=== PATIENT | female | born 1965 | race Caucasian/White ===

== ENCOUNTER 2022-12-08 12:10 | Inpatient (IN) ==
--- NOTE | 2022-12-08 12:40 | Emergency Department Note ---
History of Present Illness General Chief complaint: Shortness of Breath/Dyspnea Stated complaint: SHORTNESS OF BREATH, VOMITING, DIARRHEA Time Seen by Provider: 12/08/22 12:21 Source: patient, family (Cousin who is at the bedside), RN notes reviewed and old records reviewed Mode of arrival: ambulatory Limitations: no limitations History of Present Illness Maximum Pain Intensity: 7 This patient a 57-year-old female who comes in after having increasing shortness of breath over last 2 weeks. It is primarily dyspnea on exertion she has she feels better when she lays down. She is normally very energetic but she says now she gets very short of breath if she just tries to do the dishes. She says she can get up and exert herself. She does have some chest pressure with this but denies that it actually is painful no palpitation or racing of her heart no fall or trauma no blood or melena stool no fever chills or cough no lecture extremity pain or swelling. She does have history of asthma which she is not sure this feels like or not. She also had nausea and vomiting diarrhea started on Friday and could not take any of her medications except for insulin her last blood sugar was in the 200s she tells me. She had a stress test but has been several years ago. No known cardiac disease. Home Medications Medication Instructions Recorded Confirmed Type albuterol sulfate 90 mcg/actuation 1 inh inhalation QID PRN SHORT OF 08/27/18 12/08/22 History breath activated powder inhaler BREATH calcium phosphate 125 mg-vit D3 1 tab PO DAILY 08/27/18 12/08/22 History 3.125 mcg (125 unit) chewable tablet cetirizine 10 mg capsule (Zyrtec) 10 mg PO BID 08/27/18 12/08/22 History chlorthalidone 25 mg tablet 25 mg PO QAM 08/27/18 12/08/22 History dulaglutide 1.5 mg/0.5 mL 1 dose subcut WK 08/27/18 12/08/22 History subcutaneous pen injector (Trulicity) fluticasone propionate 110 1 puff inhalation BID PRN SHORT OF 08/27/18 12/08/22 History mcg/actuation HFA aerosol inhaler BREATH (Flovent HFA) fluticasone propionate 50 1 spray intranasal DAILY PRN 08/27/18 12/08/22 History mcg/actuation nasal NEEDED spray,suspension (Flonase Allergy Relief) hydroxyzine HCl 25 mg tablet 25 mg PO HS 08/27/18 12/08/22 History metoprolol succinate 100 mg 100 mg PO QAM 08/27/18 12/08/22 History tablet,extended release 24 hr (Toprol XL) montelukast 10 mg tablet 10 mg PO QPM 08/27/18 12/08/22 History olopatadine 0.2 % eye drops 1 drp ophthalmic (eye) DAILY PRN 08/27/18 12/08/22 History (Pataday) ALLERGY RELIEF prednisone 20 mg tablet 40 mg PO DAILY PRN .HIVES 08/27/18 12/08/22 History famotidine 20 mg tablet 20 mg PO HS PRN ALLERGY 03/06/20 12/08/22 History eaybfkcqfpjej-gujrppmhlladc-ngmtkfpielife 1 cap PO DAILY PRN Migraine 03/06/20 12/08/22 History 65 mg-100 mg-325 mg capsule Headache sulfamethoxazole 800 1 tab PO Q12H #14 tabs 03/06/20 12/08/22 Rx mg-trimethoprim 160 mg tablet (Bactrim DS) meloxicam 15 mg tablet 15 mg PO DAILY #30 tabs 01/15/21 12/08/22 Rx insulin glargine 100 unit/mL (3 18 unit subcut QAM 12/08/22 12/08/22 History mL) subcutaneous pen (Basaglar KwikPen U-100 Insulin) metformin 1,000 mg tablet 1,000 mg PO BID 12/08/22 12/08/22 History rosuvastatin 20 mg tablet 20 mg PO QAM 12/08/22 12/08/22 History Allergies Allergy/AdvReac Type Severity Reaction Status Date / Time losartan Allergy Intermediate HIVES Verified 12/08/22 15:41 sitagliptin [From Juluvia] Allergy Intermediate Swelling Verified 12/08/22 15:41 of Lip/Tongue/Throat amoxicillin Allergy Mild Rash Verified 12/08/22 15:41 clavulanic acid Allergy Mild Rash Verified 12/08/22 15:41 pollen extracts Allergy Mild AGITATES Verified 12/08/22 15:41 ASTHMA SHRUTHI Inhibitors AdvReac Mild COUGH Verified 12/08/22 15:41 Past Med/Surg History Medical History (Updated 12/08/22 @ 17:17 by Chavo Ortiz MD) Asthma EFFECTS IN SPRING MONTHS Diabetes mellitus, type 2 Environmental and seasonal allergies Hyperlipidemia Hypertension Kidney stones Migraine Surgical History History of cholecystectomy History of dilatation and curettage History of lithotripsy History of open reduction and internal fixation (ORIF) procedure RT LEG History of tooth extraction Family History Mother Family history of diabetes mellitus Father Family history of diabetes mellitus Social History Smoking Status: Never smoker Second Hand Exposure: No; Do You Dip or Chew Tobacco: No; Hx Alcohol Use: No Hx Substance Use: No Preferred Language: Trinidadian Communication Ability: Impaired Chaplain Required: No Beliefs That Will Affect Care: None Current Living Situation: Alone Feels Safe at Home: Yes Assistive Devices: None Review of Systems A total of 10 systems reviewed and were otherwise negative Physical Exam Vital Signs Vital Signs - 24 hr 12/08/22 12:15 12/08/22 12:25 12/08/22 12:26 Temperature 36.6 C Temperature Source Temporal Artery Scan Pulse Rate 118 H Pulse Rate [Right Finger] 110 H Pulse Rhythm Pulse Rhythm [Right Finger] Regular Pulse Strength [Right Finger] Normal Respiratory Rate 20 21 Respiratory Effort / Characteristics Non-Labored Spontaneous Non-Labored Spontaneous Respiratory Depth Normal Normal Respiratory Pattern Regular Blood Pressure 115/77 Blood Pressure [Right Arm] 178/108 H Blood Pressure Mean 89 Blood Pressure Mean [Right Arm] 131 Blood Pressure Position [Right Arm] Lying Pulse Oximetry 97 96 96 Oxygen Delivery Method Room Air Room Air Room Air Oxygen Flow Rate 0 Sepsis New/Unexplained Change in Mental Status No Sepsis Action Taken by Nursing No Action Required 12/08/22 12:27 12/08/22 12:40 12/08/22 12:29 Temperature Temperature Source Pulse Rate 104 H 108 H Pulse Rate [Right Finger] Pulse Rhythm Regular Pulse Rhythm [Right Finger] Pulse Strength [Right Finger] Respiratory Rate 17 Respiratory Effort / Characteristics Non-Labored Spontaneous Respiratory Depth Normal Respiratory Pattern Regular Blood Pressure Blood Pressure [Right Arm] Blood Pressure Mean Blood Pressure Mean [Right Arm] Blood Pressure Position [Right Arm] Pulse Oximetry 96 Oxygen Delivery Method Room Air Room Air Oxygen Flow Rate Sepsis New/Unexplained Change in Mental Status Sepsis Action Taken by Nursing 12/08/22 14:44 Temperature Temperature Source Pulse Rate Pulse Rate [Right Finger] 100 H Pulse Rhythm Pulse Rhythm [Right Finger] Pulse Strength [Right Finger] Respiratory Rate 22 Respiratory Effort / Characteristics Non-Labored Respiratory Depth Normal Respiratory Pattern Blood Pressure Blood Pressure [Right Arm] 115/80 Blood Pressure Mean Blood Pressure Mean [Right Arm] 91 Blood Pressure Position [Right Arm] Pulse Oximetry 98 Oxygen Delivery Method Room Air Oxygen Flow Rate Sepsis New/Unexplained Change in Mental Status Sepsis Action Taken by Nursing General: Well developed well nourished middle-age female who appears in no acute distress, breathing comfortably on room air. Normal speech HEENT: Normal cephalic atraumatic. Pupils are equal round and reactive to light. Extraocular movements are intact. Oropharynx is pink with moist mucous membranes. No swelling of the mouth lips or tongue. Neck: Supple with a midline trachea. No meningeal signs or stiffness, no JVD or bruits. No Stridor. Chest: Clear to auscultation bilaterally. No wheezes or rhonchi. No increased work of breathing. Heart: Regular rate and rhythm without murmurs or gallops. Abdomen: Soft nontender, nondistended without rebound guarding or rigidity. Extremities: No cyanosis clubbing or edema. No calf tenderness or assymetry Spine/Back. Non tender to palpation. No CVA tenderness Skin: Good turgor without rashes. Neurologic exam: Cranial nerves two through 12 are intact. Motor and sensation are intact and symmetrical throughout. Course Administered Medications Discontinued Medications Sodium Chloride (Nss 1000ml) 500 mls @ 999 mls/hr IV .Q31M ONE Stop: 12/08/22 14:42 Last Infusion: 12/08/22 16:00 Dose: 0 mls/hr Documented By: Admin: 12/08/22 15:15 Dose: 999 mls/hr Documented By: MARIE Ioversol (Optiray 320 500ml) 117 ml IV ONCE ONE Stop: 12/08/22 16:23 Last Admin: 12/08/22 16:22 Dose: 117 ml Documented By: JOESPH Medical Decision Making Differential Diagnosis Acute coronary syndrome, arrhythmia, CHF, pneumothorax, pneumonia, PE, electrolyte or metabolic abnormality, anemia Medical Records Attestation: I reviewed the patient's medical records. Home Medications Current Medication List: was personally reviewed by me Laboratory Data Attestation: I reviewed the patient's lab results. 12/08/22 12:42 12/08/22 12:42 Lab Results 12/08/22 12/08/22 12/08/22 Range/Units 12:42 12:42 12:42 WBC 17.23 H (4.8-10.8) K/ul RBC 4.92 (4.20-5.40) M/uL Hgb 13.6 (12.0-16.0) g/dl Hct 39.4 (37.0-47.0) % MCV 80.1 (80.0-100.0) fL MCH 27.6 (25.0-34.0) pg MCHC 34.5 (32.0-36.0) g/dL RDW Std Deviation 39.2 (36.4-46.3) fL RDW Coeff of Joe 13.5 (11.5-14.5) % Plt Count 371 (130-400) K/uL MPV 10.7 (9.4-12.4) fL Immature Gran % (Auto) 0.7 % Neut % (Auto) 74.1 % Lymph % (Auto) 11.4 % Barton % (Auto) 13.3 % Eos % (Auto) 0.2 % Baso % (Auto) 0.3 % Neut # (Auto) 12.75 H (1.40-6.50) K/uL Lymph # (Auto) 1.97 (1.2-3.4) K/uL Barton # (Auto) 2.30 H (0.11-0.59) K/uL Eos # (Auto) 0.04 (0-0.50) K/uL Baso # (Auto) 0.05 (0-0.2) K/uL Immature Gran # (Auto) 0.12 (0.01-0.20) K/uL PT 11.7 (9.0-12.0) Seconds INR 1.1 (0.9-1.1) APTT 26.4 (21.0-31.0) Seconds PTT Ratio 0.9 Sodium (136-145) mmol/L Potassium (3.5-5.1) mmol/L Chloride (98-107) mmol/L Carbon Dioxide (21-32) mmol/L Anion Gap (3-11) BUN (6-23) mg/dl Creatinine (0.6-1.2) mg/dl Est Cr Clr Drug Dosing ml/min Est GFR ( Amer) ml/min Est GFR (Non-Af Amer) ml/min BUN/Creatinine Ratio (10-20) Glucose (70-99(Fasting)) mg/dl Calcium (8.6-10.3) mg/dl Total Bilirubin (0.2-1.0) mg/dl AST (13-39) U/L ALT (7-52) U/L Alkaline Phosphatase (34-104) U/L Troponin I High Sens (0-14) pg/ml B-Natriuretic Peptide 43 (0-100) pg/ml Total Protein (6.0-8.3) gm/dl Albumin (3.4-5.0) gm/dl Globulin (2.5-4.0) gm/dl Albumin/Globulin Ratio (0.9-2) Lipase (11-82) U/L SARS-CoV-2, RNA, NAAT (NEGATIVE) 12/08/22 12/08/22 Range/Units 12:42 12:42 WBC (4.8-10.8) K/ul RBC (4.20-5.40) M/uL Hgb (12.0-16.0) g/dl Hct (37.0-47.0) % MCV (80.0-100.0) fL MCH (25.0-34.0) pg MCHC (32.0-36.0) g/dL RDW Std Deviation (36.4-46.3) fL RDW Coeff of Joe (11.5-14.5) % Plt Count (130-400) K/uL MPV (9.4-12.4) fL Immature Gran % (Auto) % Neut % (Auto) % Lymph % (Auto) % Barton % (Auto) % Eos % (Auto) % Baso % (Auto) % Neut # (Auto) (1.40-6.50) K/uL Lymph # (Auto) (1.2-3.4) K/uL Barton # (Auto) (0.11-0.59) K/uL Eos # (Auto) (0-0.50) K/uL Baso # (Auto) (0-0.2) K/uL Immature Gran # (Auto) (0.01-0.20) K/uL PT (9.0-12.0) Seconds INR (0.9-1.1) APTT (21.0-31.0) Seconds PTT Ratio Sodium 129 L (136-145) mmol/L Potassium 3.1 L (3.5-5.1) mmol/L Chloride 89 L (98-107) mmol/L Carbon Dioxide 28 (21-32) mmol/L Anion Gap 12 H (3-11) BUN 21 (6-23) mg/dl Creatinine 1.01 (0.6-1.2) mg/dl Est Cr Clr Drug Dosing 74.5 ml/min Est GFR ( Amer) 70.6 ml/min Est GFR (Non-Af Amer) 60.9 ml/min BUN/Creatinine Ratio 20.8 H (10-20) Glucose 338 H* (70-99(Fasting)) mg/dl Calcium 8.8 (8.6-10.3) mg/dl Total Bilirubin 1.5 H (0.2-1.0) mg/dl AST 20 (13-39) U/L ALT 16 (7-52) U/L Alkaline Phosphatase 117 H (34-104) U/L Troponin I High Sens 12.5 (0-14) pg/ml B-Natriuretic Peptide (0-100) pg/ml Total Protein 7.7 (6.0-8.3) gm/dl Albumin 3.6 (3.4-5.0) gm/dl Globulin 4.1 H (2.5-4.0) gm/dl Albumin/Globulin Ratio 0.9 (0.9-2) Lipase 29 (11-82) U/L SARS-CoV-2, RNA, NAAT NEGATIVE (NEGATIVE) Imaging Data Attestation: I personally reviewed and interpreted this imaging study as follows: My Impression: Chest x-rayno acute infiltration, failure, pneumothorax seen. Radiologist's Impression: Chest X-Ray 12/08/22 12:36 XR chest 1V portable CLINICAL HISTORY: Chest pain, nonspecific TECHNIQUE: Single frontal radiograph of the chest was obtained. Comparison: None available at the time of this dictation. FINDINGS: No lines and tubes are seen. The cardiomediastinal silhouette is normal. The lungs are clear. No evidence of pleural effusion or pneumothorax. IMPRESSION: No acute chest disease. ACT 112: Negative or not required by law. Electronically signed by: Roger Jaeger M.D. 12/08/2022 12:54 PM ECG Data Attestation: I personally reviewed and interpreted this ECG as follows: Indication: + SOB/dyspnea Rate (beats per minute): 107 Rhythm: + sinus tachycardia ECG Intervals/blocks: + Normal QRS, + Normal QT and + Normal NH ECG [place]: + Normal ECG ST segments: + Nonspecific ST abnormalities ECG Findings: + Q waves and + Poor R wave progression Comparison ECG Date: from (03/27/16) Change: the following changes noted (She now has Q waves inferiorly and some possible ST abnormality) MDM Narrative This patient comes in as described above. She was placed on a site project manager in room C7. She is here for treatment evaluation of dyspnea on exertion and s ome associated chest discomfort. She has no known cardiac history however she does have several cardiac risk factors including diabetes and hypertension. She has no pain at rest and says she felt okay this morning until she started doing things. IV access established and she was placed on site project manager, EKG, chest x-ray, and multiple blood testing was obtained. She was reassessed frequently. Her blood sugar was elevated however she does not appear to be in DKA. Her EKG shows some Q waves inferiorly compared to 2016. Chest x-ray is unremarkable does not show congestive heart failure, pneumonia, pneumothorax. Troponin was negative. Her white count is elevated 17 however she has no fever or any definite source of infection. She has had some nausea her blood sugar is elevated in the 300 range however she is not acidotic. Her sodium and potassium also mildly low. I am concerned that this could be related to acute coronary syndrome given the fact that she has symptoms with exertion and multiple cardiac risk factors I do think she needs further inpatient/observation to further evaluate for this. I have discussed the case with the [facility] hospitalist and she will be admitted/observed for these measures. I also discussed the case with the patient and her family member/cousin who arrived and they both agree. Continuous cardiac monitoring: Orders placed in EMR for continuous cardiac monitoring. Upon my evaluation patient noted to be in sinus tachycardia with a rate of 100. Impression & Plan Chest pain, KLEIN (dyspnea on exertion), Diabetes mellitus, type 2, Hyperglycemia, Lab test negative for COVID-19 virus Discharge Plan Visit Data Chief Complaint: Shortness of Breath/Dyspnea Stated Complaint: SHORTNESS OF BREATH, VOMITING, DIARRHEA ED Provider: Chavo Ortiz Discharge Problem: Chest pain, KLEIN (dyspnea on exertion), Diabetes mellitus, type 2, Hyperglycemia, Lab test negative for COVID-19 virus Patient Disposition: Admitted As Inpatient Discharge Instructions Interventions: ED Discharge Assessment Last Done: 12/08/22 17:03
--- NOTE | 2022-12-08 12:55 | XRay Report ---
XR chest 1V portable CLINICAL HISTORY: Chest pain, nonspecific TECHNIQUE: Single frontal radiograph of the chest was obtained. Comparison: None available at the time of this dictation. FINDINGS: No lines and tubes are seen. The cardiomediastinal silhouette is normal. The lungs are clear. No evid ence of pleural effusion or pneumothorax. IMPRESSION: No acute chest disease. ACT 112: Negative or not required by law. Electronically signed by: Roger Jaeger M.D. 12/08/2022 12:54 PM
[2022-12-08 13:06] LABS: Basophils # (auto) 0.05 K/uL (0-0.2); Basophils % (auto) 0.3 %; Eosinophils # (auto) 0.04 K/uL (0-0.50); Eosinophils % (auto) 0.2 %; Hematocrit (blood only) 39.4 % (37.0-47.0); Hemoglobin 13.6 g/dl (12.0-16.0); Immature Granulocytes # (auto) 0.12 K/uL (0.01-0.20); Immature Granulocytes % (auto) 0.7 %; Lymphocytes # (auto) 1.97 K/uL (1.2-3.4); Lymphocytes % (auto) 11.4 %; Mean Corpuscular Hemoglobin 27.6 pg (25.0-34.0); Mean Corpuscular Hgb Conc 34.5 g/dL (32.0-36.0); Mean Corpuscular Volume 80.1 fL (80.0-100.0); Mean Platelet Volume 10.7 fL (9.4-12.4); Monocytes % (auto) 13.3 %; Neutrophils # (auto) 12.75 K/uL (1.40-6.50); Neutrophils % (auto) 74.1 %; Platelet Count 371 K/uL (130-400); RDW Coefficient of Variation 13.5 % (11.5-14.5); RDW Standard Deviation 39.2 fL (36.4-46.3); Red Blood Count 4.92 M/uL (4.20-5.40); White Blood Count 17.23 K/ul (4.8-10.8)
[2022-12-08 13:25] LABS: Albumin Globulin Ratio 0.9 (0.9-2); Albumin Level 3.6 gm/dl (3.4-5.0); BUN Creatinine Ratio 20.8 (10-20); Bilirubin,Total 1.5 mg/dl (0.2-1.0); Calcium 8.8 mg/dl (8.6-10.3); Creatinine Clr Calc Pharmacy 74.5 ml/min; Est GFR (African American) 70.6 ml/min; Est GFR (Non-African American) 60.9 ml/min; Globulin 4.1 gm/dl (2.5-4.0); Potassium 3.1 mmol/L (3.5-5.1); Total Protein 7.7 gm/dl (6.0-8.3)
[2022-12-08 13:31] LABS: INR 1.1 (0.9-1.1); Partial Thromboplastin Ratio 0.9; Partial Thromboplastin Time 26.4 Seconds (21.0-31.0); Prothrombin Time 11.7 Seconds (9.0-12.0)
[2022-12-08] MEDS ORDERED: SODIUM CHLORIDE 0.9% 1000ML 500 ML IV ONE (14:12)
[2022-12-08 14:13] LABS: Troponin I High Sensitivity 12.5 pg/ml (0-14)
--- NOTE | 2022-12-08 14:36 | History & Physical Report ---
Date of Service December 08, 2022 Assessment & Plan (1) Chest pain: (2) KLEIN (dyspnea on exertion): (3) Asthma: Plan: - Admit to tele for observation for r/o - Trend cardiac biomarkers, initial set was negative at 12.5 - EKG reviewed as above showing possible slight Q wave inferiorly on the EKG, will r/o ACS with troponins and further workup. - Check 2 D echo-last echo in her outpatient chart shows was from 01/15/2010 which was normal and was done because of a murmur, however no cause of murmur was found on the study. - Check CT angio for PE due to her progressive shortness of breath and tachycardia - PT/OT consulted (4) Nausea vomiting and diarrhea: Plan: - IVF at 125ml/hr with hyponatremia of 129 - Replace potassium as was 3.1 on admission - Electrolyte abnormalities are likely due to gi losses over the past 5 days - Check stool culture and c diff - negative covid swab on admission, consider full viral panel although can treat with supportive care (5) Diabetes mellitus, type 2: Plan: -Last A1c was 7.3 on 10/16/2021, glucose was 338 on admission here, no anion gap, likely due to acute illness -Recheck with a.m. labs -ISS with Accu-Cheks ACHS -Hold metformin (6) Hypertension: Plan: - Resume metoprolol as tolerates, giving fluids for hydration with acute GI illness (7) Hyperlipidemia: Plan: -Last lipid panel was reviewed in outpatient epic chart, cholesterol 227, non-HDL 174, HDL 53, LDL 146 DVT PPx: teds, scds, lovenox subq CODE: Full code Dispo: From home, likely to remain in the hospital x 1-2 days A total of 78 minutes were spent with greater than 50% of that time face to face with the patient, personally reviewing all current laboratories, imaging studies, past medication reconciliation, outpatient chart review, and discussion with specialists to collaborate care for the patient with attending. Please see attending documentation for corrections and/or additions. History of Present Illness Chief Complaint: Shortness of breath, dyspnea on exertion, chest pain Primary Care Provider: Clare Ambrosio, DO This is a 57-year-old female with PMHx of DM type II, mild persistent asthma, HTN, HLD, morbid obesity with a BMI of 43.4, angioedema, urticaria who presents to the hospital with cute onset of 2 weeks of shortness of breath, with progressive dyspnea on exertion. She notes that this initially started out and she thought it was her seasonal allergies, however it has worsened to the point where she is unable to get up and walk to the kitchen and try to do her dishes without feeling winded. Chest heaviness is also present whenever she is performing exertional activities such as walking. Prior to this she was a very active person, trying to obtain 10,000 steps per day, and currently independently cares for her mother who is home on hospice. Overall she is very stressed, and and also thought that it was due to her level of stress that she was so fatigued. Patient also reports having acute gastric issues starting last Friday with nausea, vomiting, multiple episodes of diarrhea daily, which has continued through today. So far she has 3 loose BMs today, no blood, urine is clear yellow as she has been tolerating water. Denies abdominal pain or soreness. Due to her continued shortness of breath and feeling ill, she presented to the hospital today. She has been unable to take any of her home medications for the past 5 days due to nausea, vomiting. She has only been able to tolerate water. She has been using her albuterol inhaler which seems to help somewhat with her shortness of breath, however it is a rescue inhaler. Her cousin Sommer, is present with her here in the ER today and plans to help at home. Patient's sister is also coming into town from [place] to assist with caring for her mother while she is here in the hospital. Allergies Allergy/AdvReac Type Severity Reaction Status Date / Time losartan Allergy Intermediate HIVES Verified 12/08/22 15:41 sitagliptin [From Januvia] Allergy Intermediate Swelling Verified 12/08/22 15:41 of Lip/Tongue/Throat amoxicillin Allergy Mild Rash Verified 12/08/22 15:41 clavulanic acid Allergy Mild Rash Verified 12/08/22 15:41 pollen extracts Allergy Mild AGITATES Verified 12/08/22 15:41 ASTHMA SHRUTHI Inhibitors AdvReac Mild COUGH Verified 12/08/22 15:41 Home Medications Medication Instructions Recorded Confirmed Type albuterol sulfate 90 mcg/actuation 1 inh inhalation QID PRN SHORT OF 08/27/18 12/08/22 History breath activated powder inhaler BREATH calcium phosphate 125 mg-vit D3 1 tab PO DAILY 08/27/18 12/08/22 History 3.125 mcg (125 unit) chewable tablet cetirizine 10 mg capsule (Zyrtec) 10 mg PO BID 08/27/18 12/08/22 History chlorthalidone 25 mg tablet 25 mg PO QAM 08/27/18 12/08/22 History dulaglutide 1.5 mg/0.5 mL 1 dose subcut WK 08/27/18 12/08/22 History subcutaneous pen injector (Trulicity) fluticasone propionate 110 1 puff inhalation BID PRN SHORT OF 08/27/18 12/08/22 History mcg/actuation HFA aerosol inhaler BREATH (Flovent HFA) fluticasone propionate 50 1 spray intranasal DAILY PRN 08/27/18 12/08/22 History mcg/actuation nasal NEEDED spray,suspension (Flonase Allergy Relief) hydroxyzine HCl 25 mg tablet 25 mg PO HS 08/27/18 12/08/22 History metoprolol succinate 100 mg 100 mg PO QAM 08/27/18 12/08/22 History tablet,extended release 24 hr (Toprol XL) montelukast 10 mg tablet 10 mg PO QPM 08/27/18 12/08/22 History olopatadine 0.2 % eye drops 1 drp ophthalmic (eye) DAILY PRN 08/27/18 12/08/22 History (Pataday) ALLERGY RELIEF prednisone 20 mg tablet 40 mg PO DAILY PRN .HIVES 08/27/18 12/08/22 History famotidine 20 mg tablet 20 mg PO HS PRN ALLERGY 03/06/20 12/08/22 History azdjlbppnsazp-aqjlfvnjqqcad-lklyyhyqzahcq 1 cap PO DAILY PRN Migraine 03/06/20 12/08/22 History 65 mg-100 mg-325 mg capsule Headache sulfamethoxazole 800 1 tab PO Q12H #14 tabs 03/06/20 12/08/22 Rx mg-trimethoprim 160 mg tablet (Bactrim DS) meloxicam 15 mg tablet 15 mg PO DAILY #30 tabs 01/15/21 12/08/22 Rx insulin glargine 100 unit/mL (3 18 unit subcut QAM 12/08/22 12/08/22 History mL) subcutaneous pen (Basaglar KwikPen U-100 Insulin) metformin 1,000 mg tablet 1,000 mg PO BID 12/08/22 12/08/22 History rosuvastatin 20 mg tablet 20 mg PO QAM 12/08/22 12/08/22 History Past Med/Surg History Medical History (Updated 12/08/22 @ 15:39 by Darby Alcala PA-C) Asthma EFFECTS IN SPRING MONTHS Diabetes mellitus, type 2 Environmental and seasonal allergies Hyperlipidemia Hypertension Kidney stones Migraine Surgical History History of cholecystectomy History of dilatation and curettage History of lithotripsy History of open reduction and internal fixation (ORIF) procedure RT LEG History of tooth extraction Family History Mother Family history of diabetes mellitus Father Family history of diabetes mellitus Social History Smoking Status: Never smoker Second Hand Exposure: No; Do You Dip or Chew Tobacco: No; Hx Alcohol Use: No Hx Substance Use: No Preferred Language: Pakistani Communication Ability: Effective Wire 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 Maker Required: No Beliefs That Will Affect Care: None Current Living Situation: Spouse Feels Safe at Home: Yes Assistive Devices: Contacts and Glasses Review of Systems Review of Systems: Constitutional: No fever, sweats or chills Eyes: No diplopia, no worsening or blurred vision ENT: normal hearing, no trouble swallowing Respiratory: As per HPI with shortness of breath, dyspnea on exertion, No cough, sputum Cardiovascular: + Chest heaviness but no chest pain, tightness or palpitations Abdomen: No pain, nausea, vomiting, diarrhea or constipation Musculoskeletal: No joint pain, calf pain, swelling Neurologic: No weakness, numbness/tingling, or balance problems Psychiatric: No anxiety or depression Skin: No rash or itch Physical Exam Physical Exam: General: awake, alert, no apparent distress, morbidly obese with BMI of 43.4 Head: Normocephalic, atraumatic ENT: PERRL, EOMI, no pharyngeal exudate, mucous membranes moist Chest: Clear to auscultation, on room air, no adventitious breath sounds Cardiac: Regular rhythm, tachycardic with heart rate in the low 100s at rest, no murmur, no JVD, normal peripheral pulses, good capillary refill Abdominal: Hypoactive BS x 4 quadrants, soft, nondistended, nontender to palpation, no rebound or guarding Extremities: Normal inspection, no peripheral edema or erythema, calfs nontender to palpation Psych: Normal mood and affect Neuro: AAO x 3, strength intact bilaterally and rated 5/5, no motor deficits, speech is clear, no peripheral sensory deficits Results & Data Results & Data Vital Signs (Past 12 Hours) Vital Signs Temp Pulse Pulse Resp BP BP Pulse Ox 12/08/22 12:29 108 H 12/08/22 12:40 104 H 17 96 12/08/22 12:27 12/08/22 12:26 96 12/08/22 12:25 110 H 21 178/108 H 96 12/08/22 12:15 36.6 C 118 H 20 115/77 97 O2 Del Method O2 Flow Rate 12/08/22 12:29 12/08/22 12:40 Room Air 12/08/22 12:27 Room Air 12/08/22 12:26 Room Air 0 12/08/22 12:25 Room Air 12/08/22 12:15 Room Air Laboratory Results 12/08/22 12/08/22 12/08/22 12:42 12:42 12:42 WBC RBC Hgb Hct MCV MCH MCHC RDW Std Deviation RDW Coeff of Joe Plt Count MPV Immature Gran % (Auto) Neut % (Auto) Lymph % (Auto) Ferry % (Auto) Eos % (Auto) Baso % (Auto) Neut # (Auto) Lymph # (Auto) Ferry # (Auto) Eos # (Auto) Baso # (Auto) Immature Gran # (Auto) PT 11.7 INR 1.1 APTT 26.4 PTT Ratio 0.9 Sodium 129 L Potassium 3.1 L Chloride 89 L Carbon Dioxide 28 Anion Gap 12 H BUN 21 Creatinine 1.01 Est Cr Clr Drug Dosing 74.5 Est GFR ( Amer) 70.6 Est GFR (Non-Af Amer) 60.9 BUN/Creatinine Ratio 20.8 H Glucose 338 H* Calcium 8.8 Total Bilirubin 1.5 H AST 20 ALT 16 Alkaline Phosphatase 117 H Troponin I High Sens 12.5 B-Natriuretic Peptide Total Protein 7.7 Albumin 3.6 Globulin 4.1 H Albumin/Globulin Ratio 0.9 Lipase 29 SARS-CoV-2, RNA, NAAT NEGATIVE 12/08/22 12/08/22 12:42 12:42 WBC 17.23 H RBC 4.92 Hgb 13.6 Hct 39.4 MCV 80.1 MCH 27.6 MCHC 34.5 RDW Std Deviation 39.2 RDW Coeff of Joe 13.5 Plt Count 371 MPV 10.7 Immature Gran % (Auto) 0.7 Neut % (Auto) 74.1 Lymph % (Auto) 11.4 Ferry % (Auto) 13.3 Eos % (Auto) 0.2 Baso % (Auto) 0.3 Neut # (Auto) 12.75 H Lymph # (Auto) 1.97 Ferry # (Auto) 2.30 H Eos # (Auto) 0.04 Baso # (Auto) 0.05 Immature Gran # (Auto) 0.12 PT INR APTT PTT Ratio Sodium Potassium Chloride Carbon Dioxide Anion Gap BUN Creatinine Est Cr Clr Drug Dosing Est GFR ( Amer) Est GFR (Non-Af Amer) BUN/Creatinine Ratio Glucose Calcium Total Bilirubin AST ALT Alkaline Phosphatase Troponin I High Sens B-Natriuretic Peptide 43 Total Protein Albumin Globulin Albumin/Globulin Ratio Lipase SARS-CoV-2, RNA, NAAT Diagnostic Findings Chest X-Ray 12/08/22 12:36 XR chest 1V portable CLINICAL HISTORY: Chest pain, nonspecific TECHNIQUE: Single frontal radiograph of the chest was obtained. Comparison: None available at the time of this dictation. FINDINGS: No lines and tubes are seen. The cardiomediastinal silhouette is normal. The lungs are clear. No evidence of pleural effusion or pneumothorax. IMPRESSION: No acute chest disease. ACT 112: Negative or not required by law. Electronically signed by: Roger Jaeger M.D. 12/08/2022 12:54 PM ECG Additional Comments: 08-DEC-2022 12:36:12 [facility]-EDSTAT ROUTINE RETRIEVAL Sinus tachycardia Inferior infarct , age undetermined Anterior infarct (cited on or before 12-DEC-2009) Abnormal ECG When compared with ECG of 27-MAR-2016 13:42, Inferior infarct is now Present Questionable change in initial forces of Anterior leads 25mm/s10mm/[id number] 243CID: 23Unconfirmed Vent. rate 107 BPM IA interval 154 ms QRS duration 84 ms QT/QTc 344/459 ms Code Status & VTE Plan Code Status Full code - discussed with pt at bedside Supervising Physician Co-Signing Physician Notes Pt seen and examined by myself, Ofelia Panchal MD on the day of service. Care was coordinated with Darby Alcala PA-C. Please refer to her note for additional information. 57yoF with PMHx significant for asthma presenting with chronic, worsening KLEIN in the setting of an acute viral gastroenteritis. Chest xray unremarkable, CTA PE protocol pending. EKG with sinus tachycardia, troponin x1 wnl, BNP wnl, echo pending. Hyponatremia, hypokalemia noted. On singulair and inhalers PRN at home. IV fluids, replete electrolytes, follow CTA and echo results. PT/OT as might be a component of deconditioning as well. Optimize asthma treatments. Otherwise as noted above.
[2022-12-08] MEDS ORDERED: OPTIRAY 320 500ml IV ONE (16:22)
[2022-12-08] MEDS ORDERED: POTASSIUM CHLORIDE CRTAB 20 MEQ TABCR PO STA (16:49)
[2022-12-08] MEDS ORDERED: MoRPHine SULFATE 2 MG/ML CARP IV PRN (16:49)
[2022-12-08] MEDS ORDERED: FLUTICASONE PROPIONATE NA SPR 16 GM BTL NAE PRN (16:49)
[2022-12-08] MEDS ORDERED: DEXTROSE 50% 50 ML SYRINGE IV PRN (16:49)
[2022-12-08] MEDS ORDERED: SODIUM CHLORIDE 0.9% 1000ML 1,000 ML IV SCH (16:49)
[2022-12-08] MEDS ORDERED: GLUCOSE 10 TAB/TUBE PO PRN (16:49)
[2022-12-08] MEDS ORDERED: ACETAMINOPHEN 325 MG TAB PO PRN (16:49)
[2022-12-08] MEDS ORDERED: GLUCAGON FOR INJ 1 MG VIAL SQ PRN (16:49)
[2022-12-08] MEDS ORDERED: CARBOHYDRATES FOR HYPOGLYCEMIA PO PRN (16:49)
[2022-12-08] MEDS ORDERED: GLUCOSE 40% GEL 15 GM TUBE PO PRN (16:49)
[2022-12-08] MEDS ORDERED: ONDANSETRON INJ 2 MG/ML 2 ML VIAL IV PRN (16:49)
[2022-12-08] MEDS ORDERED: FAMOTIDINE 20 MG TAB PO PRN (16:49)
--- NOTE | 2022-12-08 16:59 | CT Scan Report ---
CT angio chest PE protocol CLINICAL HISTORY: PE TECHNIQUE: Multidetector row helical CT of the chest was performed with angiographic protocol. Escalante l and sagittal reformations were obtained. Coronal and sagittal MIPS were obtained from the axial aubrey a set and were submitted for review. Automated dose lowering techniques and/or adjustment according to patient size were utilized for this exam. CT DOSE: 768.74 mGy.cm Comparison: Comparison is made to CT chest 10/10/2013 FINDINGS: Lungs and pleura: Mosaic attenuation is noted throughout the lungs. 5 mm nodule is seen in the right lower lobe (series 4 image 112) Heart and pericardium: Heart size is normal. No pericardial effusion. Vessels: No evidence of pulmonary embolism. Moderate atherosclerotic disease is seen. Mediastinum and melba: Unremarkable. Chest wall and lower neck: Subcentimeter left lower cervical lymph nodes are seen. Abdomen: Hepatic steatosis is noted. Patient is status post cholecystomy. Bones: Degenerative changes in the thoracic spine. IMPRESSION: 1. No pulmonary embolus is seen. 2. Stable right lower lobe pulmonary nodule, benign. 3. Hepatic steatosis. ACT 112: Negative or not required by law. Electronically signed by: Roger Jaeger M.D. 12/08/2022 4:57 PM
[2022-12-08] MEDS ORDERED: ALBUTEROL HFA 8 GM INHALER INH PRN (17:02)
[2022-12-08] MEDS: POTASSIUM CHLORIDE / WTR 10 MEQ/100 ML PLCT IV SCH ×2 (17:17→18:25)
[2022-12-08] MEDS: INSULIN ASPART PER UNIT CHARGE SC SCH ×2 (17:35→21:54)
[2022-12-08] MEDS: CETIRIZINE HCL 10 MG TABLET PO SCH (21:38)
[2022-12-08] MEDS: MONTELUKAST SODIUM 10 MG TABLET PO SCH (21:39)
[2022-12-08] MEDS: hydrOXYzine HCl 25 MG TAB PO SCH (21:39)
[2022-12-09] MEDS: [UNRECOGNIZED DRUG - OTHER] SCH ×3 (01:19→17:15)
[2022-12-09 07:49] LABS: Hematocrit (blood only) 38.3 % (37.0-47.0); Hemoglobin 12.8 g/dl (12.0-16.0); Mean Corpuscular Hemoglobin 27.2 pg (25.0-34.0); Mean Corpuscular Hgb Conc 33.4 g/dL (32.0-36.0); Mean Corpuscular Volume 81.5 fL (80.0-100.0); Mean Platelet Volume 10.2 fL (9.4-12.4); Platelet Count 362 K/uL (130-400); RDW Coefficient of Variation 13.6 % (11.5-14.5); RDW Standard Deviation 40.3 fL (36.4-46.3); White Blood Count 12.56 K/ul (4.8-10.8)
[2022-12-09] MEDS: CHLORTHALIDONE 25 MG TAB PO SCH (07:51)
[2022-12-09] MEDS: CETIRIZINE HCL 10 MG TABLET PO SCH ×2 (07:51→21:38)
[2022-12-09] MEDS: ASPIRIN 81 MG ECTAB PO SCH (07:51)
[2022-12-09] MEDS: FLUTICASONE FUROATE 100MCG 14 PUFFS/INHALER INH SCH (07:52)
[2022-12-09] MEDS: METOPROLOL SUCC 50MG EXT REL TAB PO SCH (07:52)
[2022-12-09] MEDS: ENOXAPARIN INJ 40 MG/0.4 ML SYR SQ SCH (07:52)
[2022-12-09] MEDS: ROSUVASTATIN CALCIUM 20 MG TAB PO SCH (07:52)
[2022-12-09 07:53] LABS: Estimated Average Glucose 278 mg/dl; Hemoglobin A1C 11.3 % (4.5-5.6)
[2022-12-09 08:42] LABS: BUN Creatinine Ratio 21.9 (10-20); Calcium 8.3 mg/dl (8.6-10.3); Chol HDL Ratio 3.8 (0-5); Creatinine Clr Calc Pharmacy 102.7 ml/min; Est GFR (African American) 104.5 ml/min; Est GFR (Non-African American) 90.1 ml/min; Magnesium 1.8 mg/dl (1.7-2.4); Potassium 3.1 mmol/L (3.5-5.1)
--- NOTE | 2022-12-09 08:46 | Cardiology Consultation ---
Date of Consultation December 09, 2022 Assessment & Plan (1) Chest pain: (2) KLEIN (dyspnea on exertion): (3) Hypertension: (4) Hypokalemia: Plan Patient admitted for 1-2 weeks of progressive dyspnea, intermittent chest pressure. Troponin negative x3 since admission EKG with findings of old inferior, possible anterior infarcts, but not significantly changed from EKG's in 2014. Mild sinus tachycardia noted on admission, likely in setting of hyponatremia and hypokalemia. (Patient admitted to bout of diarrhea for several days prior to admission) Sodium levels improved this morning. Potassium remains low and supplemented. Will recheck potassium levels late morning. She does have significant risk factors for underlying ischemic heart disease including uncontrolled DM, hypertension, dyslipidemia, and obesity. Recommend proceeding with dobutamine stress echo for further evaluation and r/o inducible ischemia. Patient is in agreement. For now, continue metoprolol, statin, ASA. She is not on SHRUTHI/ARB due to history of angioedema. Case discussed with Dr. Richards I spent a total of 70 minutes on the date of service in preparation, delivery, and documentation of the care provided to this patient, excluding any time spent in the performance of separately billed services. Angelita Vazquez PA-C Department of Cardiology, [facility] This chart was completed in part utilizing Speech Voice Recognition Software. Grammatical errors, random word insertions, pronoun errors, and incomplete sentences are an occasional consequence of this system due to software limitations, ambient noise, and hardware issues. Any formal questions or concerns about the content, text, or information contained within the body of this dictation should be directly addressed to the provider for clarification. Supervising Physician Co-Signing Physician Notes Supervising Physician Attestation: I have personally performed a history and physical examination on the patient. I agree with the physician technical support assistant's findings and plan as documented with the following additions. Subjective: Patient seen prior to, during, and after dobutamine stress test. Patient tolerated the study well. Exam: Cardiovascular: Regular rhythm, no murmurs, no edema Pulmonary: Lungs clear to auscultation bilaterally Data: Dobutamine stress echocardiogram was performed and was negative for inducible ischemia. Assessment and Plan: -Chest heaviness, shortness of breath -Resting echocardiogram unrevealing with normal LVEF, grade 1 diastolic dysfunction and no significant valvular disease. -CT angiogram negative for pulmonary embolism, incidental 5 mm right lower lobe pulmonary nodule,-measured to be 6 cm at time of previous outpatient CT in 2015. Patient is low risk from a pulmonary nodule standpoint as she is a non-smoker. -Hypokalemia noted -- No further cardiac testing felt to be indicated at this time. Per outpatient chart, her blood pressures are well controlled at baseline on her usual treatment including chlorthalidone. Hypokalemia noted, perhaps related to her presenting symptom of diarrhea. She was received potassium replacement with a repeat potassium remain low at 3.2 mmol/L at 1215 today. Will replace orally. Resume diet. -- Defer further work-up to hospitalist service. Mauricio Richards, DO History of Present Illness Reason for Consultation: Dyspnea; Chest pressure Requesting Physician: Dr. Hinson Attending Physician: Dr. Richards History of Present Illness Patient is a 57-year-old female with past medical history includin. Hypertension 2. dyslipidemia 3. DM type II 4. Obesity 5. Asthma Patient denies personal cardiac history of CAD, [place], valvular disease, CHF, arrhythmia. She was told many years ago she may have had a heart murmur, but echo in 2009 revealed normal LVEF without valvular heart disease. She had EKG's in 2009 and 2013 with possible old anterior infarct and Q wave in lead III. 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 She also lost her father around . Alot of outside stressors mentioned. Over the last few weeks patient began to notice worsening SOB with any type of minimal exertion, such as ambulation from house to car, or ambulating in her house. this weekend she developed chest pressure/tightness with the dyspnea as well. She felt weakness trying to wash dishes. Due to these complaints, she came to the ER for evaluation. HS troponin negative x3. EKG on admission demonstrated sinus tach with possible old inferior [place]. Similar to past EKGs in [facility] many years ago. Her WBC was elevated on arrival. Sodium levels were low and potassium levels were low. Apparently patient also had episode of diarrhea and n/v for several days. However, this was resolving when she came to the ER. She came for evaluation due to the SOB/chest pressure. Since ER evaluation, patient reports he chest pressure has resolved. She continues to report SOB with ambulation to the restroom, but she admits this does not seem "as bad" as when she was admitted. No fever or chills. NO palpitations. She denies LE edema, weight gain, orthopnea, PND. At time of consult this morning, patient was resting in bed comfortably. She denies acute complaints at this time, however she is concerned with her SOB given her cardiac risk factors and no recent evaluation. No family history of premature CAD or sudden cardiac . 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 No tobacco abuse. Allergies Allergy/AdvReac Type Severity Reaction Status Date / Time losartan Allergy Intermediate HIVES Verified 12/08/22 15:41 sitagliptin [From Juluvia] Allergy Intermediate Swelling Verified 12/08/22 15:41 of Lip/Tongue/Throat amoxicillin Allergy Mild Rash Verified 12/08/22 15:41 clavulanic acid Allergy Mild Rash Verified 12/08/22 15:41 pollen extracts Allergy Mild AGITATES Verified 12/08/22 15:41 ASTHMA SHRUTHI Inhibitors AdvReac Mild COUGH Verified 12/08/22 15:41 Home Medications Medication Instructions Recorded Confirmed Type albuterol sulfate 90 mcg/actuation 1 inh inhalation QID PRN SHORT OF 08/27/18 12/08/22 History breath activated powder inhaler BREATH calcium phosphate 125 mg-vit D3 1 tab PO DAILY 08/27/18 12/08/22 History 3.125 mcg (125 unit) chewable tablet cetirizine 10 mg capsule (Zyrtec) 10 mg PO BID 08/27/18 12/08/22 History chlorthalidone 25 mg tablet 25 mg PO QAM 08/27/18 12/08/22 History fluticasone propionate 110 1 puff inhalation BID PRN SHORT OF 08/27/18 12/08/22 History mcg/actuation HFA aerosol inhaler BREATH (Flovent HFA) fluticasone propionate 50 1 spray intranasal DAILY PRN 08/27/18 12/08/22 History mcg/actuation nasal NEEDED spray,suspension (Flonase Allergy Relief) hydroxyzine HCl 25 mg tablet 25 mg PO HS 08/27/18 12/08/22 History metoprolol succinate 100 mg 100 mg PO QAM 08/27/18 12/08/22 History tablet,extended release 24 hr (Toprol XL) montelukast 10 mg tablet 10 mg PO QPM 08/27/18 12/08/22 History olopatadine 0.2 % eye drops 1 drp ophthalmic (eye) DAILY PRN 08/27/18 12/08/22 History (Pataday) ALLERGY RELIEF prednisone 20 mg tablet 40 mg PO DAILY PRN .HIVES 08/27/18 12/08/22 History famotidine 20 mg tablet 20 mg PO HS 03/06/20 12/08/22 History insulin glargine 100 unit/mL (3 18 unit subcut QAM 12/08/22 12/08/22 History mL) subcutaneous pen (Basaglar KwikPen U-100 Insulin) metformin 1,000 mg tablet 1,000 mg PO BID 12/08/22 12/08/22 History rosuvastatin 20 mg tablet 20 mg PO QAM 12/08/22 12/08/22 History bupropion HCl 150 mg 24 hr tablet, 150 mg PO DAILY 12/09/22 12/09/22 History extended release dulaglutide 3 mg/0.5 mL 3 mg subcut Q7D 12/09/22 12/09/22 History subcutaneous pen injector (Trulicity) lorazepam 0.5 mg tablet 0.5 mg PO TID PRN Anxiety 12/09/22 12/09/22 History Patient History Medical History (Updated 12/09/22 @ 11:12 by Angelita Vazquez PA-C) Asthma EFFECTS IN SPRING MONTHS Diabetes mellitus, type 2 Environmental and seasonal allergies Hyperlipidemia Hypertension Kidney stones Migraine Surgical History History of cholecystectomy History of dilatation and curettage History of lithotripsy History of open reduction and internal fixation (ORIF) procedure RT LEG History of tooth extraction Family History Mother Family history of diabetes mellitus Father Family history of diabetes mellitus Social History Smoking Status: Never smoker Second Hand Exposure: No; Do You Dip or Chew Tobacco: No; Hx Alcohol Use: No Hx Substance Use: No Preferred Language: Maori Communication Ability: Effective Teacher Vocational Training Required: No Beliefs That Will Affect Care: None Current Living Situation: Alone Feels Safe at Home: Yes Assistive Devices: Glasses Review of Systems Review of Systems: All systems reviewed & are unremarkable except as noted in HPI & below Physical Exam Constitutional: WD/WN, vitals as above + morbidly obese Neck: + thick neck Respiratory: normal respiratory effort; no labored breathing and no cough Auscultation: lungs clear to auscultation bilaterally; no crackles and no wheezes Cardiovascular: Rate/Rhythm: regular rate and regular rhythm Heart Sounds: no murmur (Distant heart sounds, no audible murmur) Vessels: no JVD Extremities: no edema Gastrointestinal (Abdomen): normal bowel sounds, soft, nontender, no hepatosplenomegaly Skin: no rashes, warm and dry Neurologic: PERRL, EOMI, accommodation nl, no face palsy, no dysarthria Psychiatric: A+Ox3, euthymic affect Results & Data Vital Signs (Past 12 Hours) Vital Signs Temp Pulse Pulse Resp BP Pulse Ox O2 Del Method 12/09/22 04:02 36.8 C 103 H 18 121/75 97 Room Air 12/08/22 22:03 98 H 12/09/22 02:36 Room Air 12/08/22 23:01 37 C 95 H 18 129/81 98 Room Air Laboratory Results Cardiac Enzymes 12/08/22 12/08/22 12/08/22 Range/Units 12:42 12:42 17:13 AST 20 (13-39) U/L Troponin I High Sens 12.5 9.4 (0-14) pg/ml B-Natriuretic Peptide 43 (0-100) pg/ml 12/08/22 Range/Units 22:34 AST (13-39) U/L Troponin I High Sens 13.6 D (0-14) pg/ml B-Natriuretic Peptide (0-100) pg/ml Coagulation 12/08/22 12/08/22 Range/Units 12:42 12:42 PT 11.7 (9.0-12.0) Seconds APTT 26.4 (21.0-31.0) Seconds B-Natriuretic Peptide 43 (0-100) pg/ml Lipids 12/09/22 Range/Units 07:10 Triglycerides 103 (0-150) mg/dl Cholesterol 119 (0-200) mg/dl HDL Cholesterol 31 mg/dl Cholesterol/HDL Ratio 3.8 (0-5) CBC 12/08/22 12/09/22 Range/Units 12:42 07:10 WBC 17.23 H 12.56 H (4.8-10.8) K/ul RBC 4.92 4.70 (4.20-5.40) M/uL Hgb 13.6 12.8 (12.0-16.0) g/dl Hct 39.4 38.3 (37.0-47.0) % Plt Count 371 362 (130-400) K/uL Neut # (Auto) 12.75 H (1.40-6.50) K/uL Lymph # (Auto) 1.97 (1.2-3.4) K/uL [place] # (Auto) 2.30 H (0.11-0.59) K/uL Eos # (Auto) 0.04 (0-0.50) K/uL Baso # (Auto) 0.05 (0-0.2) K/uL Comprehensive Metabolic Panel 12/08/22 12/09/22 Range/Units 12:42 07:10 Sodium 129 L 135 L (136-145) mmol/L Potassium 3.1 L 3.1 L (3.5-5.1) mmol/L Chloride 89 L 98 (98-107) mmol/L Carbon Dioxide 28 28 (21-32) mmol/L BUN 21 16 (6-23) mg/dl Creatinine 1.01 0.73 (0.6-1.2) mg/dl Glucose 338 H* 184 H (70-99(Fasting)) mg/dl Calcium 8.8 8.3 L (8.6-10.3) mg/dl AST 20 (13-39) U/L ALT 16 (7-52) U/L Alkaline Phosphatase 117 H (34-104) U/L Total Protein 7.7 (6.0-8.3) gm/dl Albumin 3.6 (3.4-5.0) gm/dl Intake and Output 12/08/22 12/09/22 12/09/22 22:59 06:59 14:59 Intake Total 940 / 2190 1250 / 2190 Balance 940 / 2190 1250 / 2190 Intake: IV 700 / 1700 1000 / 1700 Potassium Chloride / Wtr 10 meq 200 / 200 In 100 ml @ 100 mls/hr IV Q1H [facility] Rx#:[id number] Sodium Chloride 0.9% 1000ML 1, 500 / 1500 1000 / 1500 000 ml @ 125 mls/hr IV .Q8H [facility] Rx#:[id number] Oral 240 / 490 250 / 490 Other: Weight 114 kg Weight Measurement Method Standing Scale Diagnostic Findings Telemetry reviewed: NSR in the 90-110 range. Occ PVC. No concerning arrhythmias. EKG on admission, 12/08/22: Sinus tachycardia Inferior infarct , age undetermined Anterior infarct (cited on or before 12-DEC-2009) Abnormal ECG When compared with ECG of 27-MAR-2016 13:42, Inferior infarct is now Present Questionable change in initial forces of Anterior leads When compared to outpatient EKG in [facility] dated 2013, she had inferior Q waves in lead III at that time Chest X-Ray 12/08/22 12:36 XR chest 1V portable CLINICAL HISTORY: Chest pain, nonspecific TECHNIQUE: Single frontal radiograph of the chest was obtained. Comparison: None available at the time of this dictation. FINDINGS: No lines and tubes are seen. The cardiomediastinal silhouette is normal. The lungs are clear. No evidence of pleural effusion or pneumothorax. IMPRESSION: No acute chest disease. ACT 112: Negative or not required by law. Electronically signed by: Roger Jaeger M.D. 12/08/2022 12:54 PM Chest CTA 12/08/22 15:30 CT angio chest PE protocol CLINICAL HISTORY: PE TECHNIQUE: Multidetector row helical CT of the chest was performed with angiographic protocol. Coronal and sagittal reformations were obtained. Coronal and sagittal MIPS were obtained from the axial data set and were submitted for review. Automated dose lowering techniques and/or adjustment according to patient size were utilized for this exam. CT DOSE: 768.74 mGy.cm Comparison: Comparison is made to CT chest 10/10/2013 FINDINGS: Lungs and pleura: Mosaic attenuation is noted throughout the lungs. 5 mm nodule is seen in the right lower lobe (series 4 image 112) Heart and pericardium: Heart size is normal. No pericardial effusion. Vessels: No evidence of pulmonary embolism. Moderate atherosclerotic disease is seen. Mediastinum and melba: Unremarkable. Chest wall and lower neck: Subcentimeter left lower cervical lymph nodes are seen. Abdomen: Hepatic steatosis is noted. Patient is status post cholecystomy. Bones: Degenerative changes in the thoracic spine. IMPRESSION: 1. No pulmonary embolus is seen. 2. Stable right lower lobe pulmonary nodule, benign. 3. Hepatic steatosis. ACT 112: Negative or not required by law. Electronically signed by: Roger Jaeger M.D. 12/08/2022 4:57 PM Medications Administered Current Inpatient Medications Acetaminophen (Acetaminophen 325 Mg Tab) 650 mg PO Q4H PRN PRN Reason: Moderate Pain (Scale 4, 5, 6) Stop: 01/07/23 16:48 Albuterol (Albuterol Hfa 8 Gm Inhaler) 1 puffs INH QID PRN PRN Reason: SHORT OF BREATH Stop: 01/07/23 17:01 Aspirin (Aspirin 81 Mg Ectab) 81 mg PO QAM [facility] Stop: 01/08/23 08:59 Last Admin: 12/09/22 07:51 Dose: 81 mg Cetirizine HCl (Cetirizine Hcl 10 Mg Tablet) 10 mg PO BID [facility] Stop: 01/07/23 20:59 Last Admin: 12/09/22 07:51 Dose: 10 mg Chlorthalidone (Chlorthalidone 25 Mg Tab) 25 mg PO QAM [facility] Stop: 01/08/23 08:59 Last Admin: 12/09/22 07:51 Dose: 25 mg Dextrose (Dextrose 50% 50 Ml Syringe) 25 - 50 ml IV UD PRN; Protocol PRN Reason: Hypoglycemia Protocol Stop: 01/07/23 16:48 Enoxaparin Sodium (Enoxaparin Inj 40 Mg/0.4 Ml Syr) 40 mg SQ QAM [facility] Stop: 01/08/23 08:59 Last Admin: 12/09/22 07:52 Dose: 40 mg Famotidine (Famotidine 20 Mg Tab) 20 mg PO HS PRN PRN Reason: UTICARIA Stop: 01/07/23 16:48 Fluticasone Furoate (Fluticasone Furoate 100mcg 14 Puffs/Inhaler) 1 puffs INH DAILY [facility] Stop: 01/08/23 08:59 Last Admin: 12/09/22 07:52 Dose: 1 puffs Fluticasone Propionate (Fluticasone Propionate Na Spr 16 Gm Btl) 1 sprays CELESTINO DAILY PRN PRN Reason: ALLERGIES/CONGESTION Stop: 01/07/23 16:48 Glucagon (Glucagon For Inj 1 Mg Vial) 1 mg SQ UD PRN; Protocol PRN Reason: Hypoglycemia Protocol Stop: 01/07/23 16:48 Glucose (Glucose 10 Tab/Tube) 4 - 8 tab PO UD PRN; Protocol PRN Reason: Hypoglycemia Treatment Stop: 01/07/23 16:48 Glucose (Glucose 40% Gel 15 Gm Tube) 15 - 30 gm PO UD PRN; Protocol PRN Reason: Hypoglycemia Protocol Stop: 01/07/23 16:48 Hydroxyzine HCl (Hydroxyzine Hcl 25 Mg Tab) 25 mg PO HS [facility] Stop: 01/07/23 20:59 Last Admin: 12/08/22 21:39 Dose: 25 mg Insulin Aspart (Insulin Aspart Per Unit Charge) 0 units SC [facility] Stop: 01/07/23 16:48 Last Admin: 12/09/22 09:07 Dose: 8 units Insulin Glargine (Lantus Per Unit Charge) 9 units SQ [facility] Stop: 01/08/23 08:59 Last Admin: 12/09/22 09:07 Dose: 9 units Metoprolol Succinate (Metoprolol Succ 50mg Ext Rel Tab) 100 mg PO [facility] Stop: 01/08/23 08:59 Last Admin: 12/09/22 07:52 Dose: 100 mg Miscellaneous (Carbohydrates For Hypoglycemia ) 15 - 30 gm PO UD PRN PRN Reason: Hypoglycemia Protocol Stop: 01/07/23 16:48 Miscellaneous (Order Awaiting Action: Olopatadine [Pataday] 0.2 % Drops) 1 each N/A QS [facility] Stop: 01/08/23 00:00 Last Admin: 12/09/22 07:48 Dose: Not Given Montelukast Sodium (Montelukast Sodium 10 Mg Tablet) 10 mg PO QPM [facility] Stop: 01/07/23 20:59 Last Admin: 12/08/22 21:39 Dose: 10 mg Morphine Sulfate (Morphine Sulfate 2 Mg/Ml Carp) 2 mg IV Q2H PRN PRN Reason: Pain, moderate rating 5,6,7 Stop: 12/22/22 16:48 Ondansetron HCl (Ondansetron Inj 2 Mg/Ml 2 Ml Vial) 4 mg IV Q4H PRN PRN Reason: Nausea And Vomiting Stop: 01/07/23 16:48 Rosuvastatin Calcium (Rosuvastatin Calcium 20 Mg Tab) [facility] Stop: 01/08/23 08:59 Last Admin: 12/09/22 07:52 Dose: 20 mg (1) Chest pain Chest pain type: precordial pain Qualified Code(s): R07.2 - Precordial pain
[2022-12-09] MEDS ORDERED: [UNRECOGNIZED DRUG - OTHER] PO SCH (09:00)
[2022-12-09] MEDS ORDERED: CALCIUM PO SCH (09:00)
[2022-12-09] MEDS ORDERED: LANTUS PER UNIT CHARGE SQ SCH (09:00)
[2022-12-09] MEDS ORDERED: CALCIUM PHOSPHATE VITAMIN D3 PO SCH (09:00)
[2022-12-09] MEDS: INSULIN ASPART PER UNIT CHARGE SC SCH ×4 (09:07→21:45)
--- NOTE | 2022-12-09 11:44 | Electrocardiogram Report ---
Test Reason : Blood Pressure : / mmHG Vent. Rate : 107 BPM Atrial Rate : 107 BPM P-R Int : 154 ms QRS Dur : 084 ms QT Int : 344 ms P-R-T Axes : 021 -07 000 degrees QTc Int : 459 ms Sinus tachycardia Inferior infarct , age undetermined Anterior infarct (cited on or before 12-DEC-2009) Abnormal ECG When compared with ECG of 27-MAR-2016 13:42, Inferior infarct is now Present Questionable change in initial forces of Anterior leads Confirmed by Nestor Norton ([id number]) on 12/09/2022 11:44:41 AM Referred By: Confirmed By:Nestor Norton
[2022-12-09] MEDS ORDERED: NITROGLYCERIN SL 0.4 MG/TAB TAB ONE (12:56)
[2022-12-09] MEDS ORDERED: ATROPINE SULFATE 0.1 MG/ML 10ML SYR IV ONE (12:56)
[2022-12-09] MEDS ORDERED: DOBUTamine HCL 12.5 MG/ML 20 ML VIAL IV ONE (12:56)
[2022-12-09] MEDS ORDERED: METOPROLOL TARTRATE 1 MG/ML VIAL IV ONE (12:56)
[2022-12-09] MEDS ORDERED: POTASSIUM CHLORIDE CRTAB 20 MEQ TABCR PO STA (14:34)
--- NOTE | 2022-12-09 14:46 | Hospitalist Progress Note ---
Date of Service December 09, 2022 Assessment & Plan (1) Chest pain: (2) KLEIN (dyspnea on exertion): (3) Asthma: Plan: - Admit to tele for observation for r/o - Trend cardiac biomarkers, initial set was negative at 12.5 - EKG reviewed as above showing possible slight Q wave inferiorly on the EKG, will r/o ACS with troponins and further workup. - Check 2 D echo-last echo in her outpatient chart shows was from 01/15/2010 which was normal and was done because of a murmur, however no cause of murmur was found on the study. - Check CT angio for PE due to her progressive shortness of breath and tachycardia - PT/OT consulted 12/09 trop negative x 3 EKG no signs of ischemia Echo: 60-65% no wall motion abnormalities for dobutamine stress test today CT chest: negative for PE, pneumonia chest TSH, Cortisol (4) Nausea vomiting and diarrhea: Plan: - IVF at 125ml/hr with hyponatremia of 129 - Replace potassium as was 3.1 on admission - Electrolyte abnormalities are likely due to gi losses over the past 5 days - Check stool culture and c diff - negative covid swab on admission, consider full viral panel although can treat with supportive care 12/09 resolved replace K (5) Diabetes mellitus, type 2: Plan: -Last A1c was 7.3 on 10/16/2021, glucose was 338 on admission here, no anion gap, likely due to acute illness -Recheck with a.m. labs -ISS with Accu-Cheks ACHS -Hold metformin 12/09 a1c 11 DM educator consulted (6) Hypertension: Plan: - Resume metoprolol as tolerates, giving fluids for hydration with acute GI illness (7) Hyperlipidemia: Plan: -Last lipid panel was reviewed in outpatient epic chart, cholesterol 227, non- HDL 174, HDL 53, LDL 146 DVT PPx: teds, scds, lovenox subq CODE: Full code Dispo: PT/OT evaluation pending Admission and Anticipated Discharge Date Admission Date: December 08, 2022 Subjective ff up for chest pain, etc seen resting in bed, comfortable not in distress no active chest pain, dyspnea no dizziness, palpitations no cough, recent resp tract infection, fever/chills no other symptoms Review of Systems Review of Systems: all noted and negative except for above Physical Exam Physical Exam: General- oriented x 3, not in distress, speaks in sentences with no effort or accessory muscle use Eyes- anicteric Neck- no JVD Lungs- clear breath sounds bilaterally, no rales/wheezes Heart- normal rate, regular rhythm; no murmurs Abdomen- normal bowel sounds, nondistended, soft, nontender Extremities- no pretibial edema, no calf tenderness Neuro- alert, oriented x 3; no gross focal neurologic deficits Skin- warm & dry Results & Data Results & Data Vital Signs (Past 12 Hours) Vital Signs Temp Pulse Pulse Resp BP BP Pulse Ox 12/09/22 11:26 37.6 C H 87 16 133/85 94 12/09/22 08:00 102 H 12/09/22 08:00 37.5 C 107 H 18 120/72 93 12/09/22 04:02 36.8 C 103 H 18 121/75 97 O2 Del Method O2 Flow Rate 12/09/22 11:26 Nasal Cannula 1.5 12/09/22 08:00 12/09/22 08:00 Room Air 12/09/22 04:02 Room Air all noted and reviewed including below (5) Diabetes mellitus, type 2 Diabetes mellitus complication status: without complication Diabetes mellitus intermediate insulin use: with extermination supervisor use Qualified Code(s): E11.9 - Type 2 diabetes mellitus without complications; 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
[2022-12-09] MEDS ORDERED: LORazepam 0.5 MG TAB PO PRN (15:38)
[2022-12-09] MEDS ORDERED: FAMOTIDINE 20 MG TAB PO SCH (21:00)
[2022-12-09] MEDS: MONTELUKAST SODIUM 10 MG TABLET PO SCH (21:38)
[2022-12-09] MEDS: hydrOXYzine HCl 25 MG TAB PO SCH (21:39)
[2022-12-10] MEDS: [UNRECOGNIZED DRUG - OTHER] SCH ×2 (01:12→07:36)
[2022-12-10] MEDS: ASPIRIN 81 MG ECTAB PO SCH (07:37)
[2022-12-10] MEDS: FLUTICASONE FUROATE 100MCG 14 PUFFS/INHALER INH SCH (07:38)
[2022-12-10] MEDS: ROSUVASTATIN CALCIUM 20 MG TAB PO SCH (07:38)
[2022-12-10] MEDS: METOPROLOL SUCC 50MG EXT REL TAB PO SCH (07:38)
[2022-12-10] MEDS: ENOXAPARIN INJ 40 MG/0.4 ML SYR SQ SCH (07:38)
[2022-12-10] MEDS: CHLORTHALIDONE 25 MG TAB PO SCH (07:38)
[2022-12-10] MEDS: CETIRIZINE HCL 10 MG TABLET PO SCH (07:38)
[2022-12-10] MEDS: INSULIN ASPART PER UNIT CHARGE SC SCH ×2 (08:58→12:52)
[2022-12-10] MEDS ORDERED: buPROPion XL 150 MG TABCR PO SCH (09:00)
[2022-12-10] MEDS ORDERED: LANTUS PER UNIT CHARGE SQ SCH (09:00)
[2022-12-10 09:50] LABS: BUN Creatinine Ratio 23.5 (10-20); Calcium 8.2 mg/dl (8.6-10.3); Creatinine Clr Calc Pharmacy 111.2 ml/min; Est GFR (Non-African American) 95.7 ml/min; Magnesium 1.7 mg/dl (1.7-2.4)
[2022-12-10] MEDS ORDERED: POTASSIUM CHLORIDE CRTAB 20 MEQ TABCR PO SCH (10:00)
--- NOTE | 2022-12-10 10:00 | Hospitalist Progress Note ---
Date of Service December 10, 2022 Assessment & Plan (1) Chest pain: (2) KLEIN (dyspnea on exertion): (3) Asthma: Plan: Acute coronary syndrome ruled out Cardiology service consulted: trop negative x 3 EKG no signs of ischemia Echo: 60-65% no wall motion abnormalities dobutamine stress test: Negative CT chest: negative for PE, pneumonia CT angio chest: Negative for PE, pneumonia TSH, cortisol -- Symptoms likely secondary to recent diarrheal illness, stress contributory -- PT OT evaluation-recommend to return home (4) Nausea vomiting and diarrhea: Plan: Resolved Stool studies positive for EPEC and norovirus Diarrhea and GI symptoms resolved Hypokalemia Likely secondary to chlorthalidone, recent diarrheal illness Discharged on potassium 40meq daily Repeat BMP in 1 week (5) Diabetes mellitus, type 2: Plan: 12/10 a1c 11 Follow-up as an outpatient (6) Hypertension: Plan: - Resume metoprolol (7) Hyperlipidemia: Plan: -Last lipid panel was reviewed in outpatient epic chart, cholesterol 227, non- HDL 174, HDL 53, LDL 146 DVT PPx: teds, scds, lovenox subq CODE: Full code Dispo: DC home Follow-up with PCP in 1 week Admission and Anticipated Discharge Date Admission Date: December 08, 2022 Subjective ff up for chest pain, etc Seen resting in bed, comfortable, in good spirits States she feels much better overall Chest pain, shortness of breath resolved No dizziness, nausea vomiting Ambulating with no issues no States she is ready for discharge today Review of Systems Review of Systems: all noted and negative except for above Physical Exam Physical Exam: General- oriented x 3, not in distress, speaks in sentences with no effort or accessory muscle use Eyes- anicteric Neck- no JVD Lungs- clear breath sounds bilaterally, no rales/wheezes Heart- normal rate, regular rhythm; no murmurs Abdomen- normal bowel sounds, nondistended, soft, nontender Extremities- no pretibial edema, no calf tenderness Neuro- alert, oriented x 3; no gross focal neurologic deficits Skin- warm & dry Results & Data Results & Data Vital Signs (Past 12 Hours) Vital Signs Temp Pulse Pulse Resp BP Pulse Ox O2 Del Method 12/10/22 07:44 36.8 C 82 18 115/77 93 Room Air 12/10/22 04:37 37.0 C 81 18 115/55 L 95 Room Air 12/10/22 02:22 86 12/09/22 23:43 36.7 C 90 18 120/77 94 Room Air all noted and reviewed including below (5) Diabetes mellitus, type 2 Diabetes mellitus complication status: without complication Diabetes mellitus terminal gauger insulin use: with care home use Qualified Code(s): E11.9 - Type 2 diabetes mellitus without complications; Z79.4 - retirement (current) use of insulin
[2022-12-10 11:29] LABS: Adenovirus F 40/41 PCR Not Detected (NotDetected); Astrovirus PCR Not Detected (NotDetected); Campylobacter PCR Not Detected (NotDetected); Cryptosporidium PCR Not Detected (NotDetected); Cyclospora cayetanensis PCR Not Detected (NotDetected); Entamoeba histolytica PCR Not Detected (NotDetected); Enteroaggregative E.coli(EAEC) Not Detected (NotDetected); Enterotoxigenic E.coli (ETEC) Not Detected (NotDetected); Giardia lamblia PCR Not Detected (NotDetected); Plesiomonas shigelloides PCR Not Detected (NotDetected); Rotavirus A PCR Not Detected (NotDetected); Salmonella PCR Not Detected (NotDetected); Sapovirus PCR Not Detected (NotDetected); Shiga-like Toxin E.coli (STEC) Not Detected (NotDetected); Shigella/Enteroinvasive E.coli Not Detected (NotDetected); Vibrio cholerae PCR Not Detected (NotDetected); Vibrio species PCR Not Detected (NotDetected); Yersinia enterocolitica PCR Not Detected (NotDetected)
[2022-12-10 11:36] LABS: Enteropathogenic E.coli (EPEC) DETECTED (NotDetected)
[2022-12-10 11:37] LABS: Norovirus GI/GII PCR DETECTED (NotDetected)
--- NOTE | 2022-12-10 17:44 | Discharge Summary ---
Discharge Summary Date of Service December 10, 2022 Notes For Next Care Provider Please repeat basic metabolic profile in 1 week Medication Changes From Visit Potassium 40 mill equivalents daily x2 weeks Admission HPI Per Admitting Provider This is a 57-year-old female with PMHx of DM type II, mild persistent asthma, HTN, HLD, morbid obesity with a BMI of 43.4, angioedema, urticaria who presents to the hospital with cute onset of 2 weeks of shortness of breath, with progressive dyspnea on exertion. She notes that this initially started out and she thought it was her seasonal allergies, however it has worsened to the point where she is unable to get up and walk to the kitchen and try to do her dishes without feeling winded. Chest heaviness is also present whenever she is performing exertional activities such as walking. Prior to this she was a very active person, trying to obtain 10,000 steps per day, and currently independently cares for her mother who is home on hospice. Overall she is very stressed, and and also thought that it was due to her level of stress that she was so fatigued. Patient also reports having acute gastric issues starting last Friday with nausea, vomiting, multiple episodes of diarrhea daily, which has continued through today. So far she has 3 loose BMs today, no blood, urine is clear yellow as she has been tolerating water. Denies abdominal pain or soreness. Due to her continued shortness of breath and feeling ill, she presented to the hospital today. She has been unable to take any of her home medications for the past 5 days due to nausea, vomiting. She has only been able to tolerate water. She has been using her albuterol inhaler which seems to help somewhat with her shortness of breath, however it is a rescue inhaler. Her cousin Sommer, is present with her here in the ER today and plans to help at home. Patient's sister is also coming into town from [place] to assist with caring for her mother while she is here in the hospital. Admission Exam Per Admitting Provider General: awake, alert, no apparent distress, morbidly obese with BMI of 43.4 Head: Normocephalic, atraumatic ENT: PERRL, EOMI, no pharyngeal exudate, mucous membranes moist Chest: Clear to auscultation, on room air, no adventitious breath sounds Cardiac: Regular rhythm, tachycardic with heart rate in the low 100s at rest, no murmur, no JVD, normal peripheral pulses, good capillary refill Abdominal: Hypoactive BS x 4 quadrants, soft, nondistended, nontender to palpation, no rebound or guarding Extremities: Normal inspection, no peripheral edema or erythema, calfs nontender to palpation Psych: Normal mood and affect Neuro: AAO x 3, strength intact bilaterally and rated 5/5, no motor deficits, speech is clear, no peripheral sensory deficits Principal Dx & Hospital Course #1 = Principal Diagnosis (1) Chest pain: (2) KLEIN (dyspnea on exertion): (3) Asthma: Acute coronary syndrome ruled out Cardiology service consulted: trop negative x 3 EKG no signs of ischemia Echo: 60-65% no wall motion abnormalities dobutamine stress test: Negative CT chest: negative for PE, pneumonia CT angio chest: Negative for PE, pneumonia TSH, cortisol -- Symptoms likely secondary to recent diarrheal illness, stress contributory -- PT OT evaluation-recommend to return home Abnormal CT chest findings Stable right lower lobe pulmonary nodule, benign. Hepatic steatosis. -- Further work up, management, and ff up as outpatient (4) Nausea vomiting and diarrhea: Resolved Stool studies positive for EPEC and norovirus Diarrhea and GI symptoms resolved Hypokalemia Likely secondary to chlorthalidone, recent diarrheal illness Discharged on potassium 40meq daily Repeat BMP in 1 week (5) Diabetes mellitus, type 2: 12/10 a1c 11 Follow-up as an outpatient (6) Hypertension: - Resume metoprolol (7) Hyperlipidemia: -Last lipid panel was reviewed in outpatient epic chart, cholesterol 227, non- HDL 174, HDL 53, LDL 146 DVT PPx: teds, scds, lovenox subq CODE: Full code Dispo: DC home Follow-up with PCP in 1 week Discharge Exam General- oriented x 3, not in distress, speaks in sentences with no effort or accessory muscle use Eyes- anicteric Neck- no JVD Lungs- clear breath sounds bilaterally, no rales/wheezes Heart- normal rate, regular rhythm; no murmurs Abdomen- normal bowel sounds, nondistended, soft, nontender Extremities- no pretibial edema, no calf tenderness Neuro- alert, oriented x 3; no gross focal neurologic deficits Skin- warm & dry Updated Medication List Medication Instructions Recorded Confirmed Type albuterol sulfate 90 mcg/actuation 1 inh inhalation QID PRN SHORT OF 08/27/18 12/08/22 History breath activated powder inhaler BREATH calcium phosphate 125 mg-vit D3 1 tab PO DAILY 08/27/18 12/08/22 History 3.125 mcg (125 unit) chewable tablet cetirizine 10 mg capsule (Zyrtec) 10 mg PO BID 08/27/18 12/08/22 History chlorthalidone 25 mg tablet 25 mg PO QAM 08/27/18 12/08/22 History fluticasone propionate 110 1 puff inhalation BID PRN SHORT OF 08/27/18 12/08/22 History mcg/actuation HFA aerosol inhaler BREATH (Flovent HFA) fluticasone propionate 50 1 spray intranasal DAILY PRN 08/27/18 12/08/22 History mcg/actuation nasal NEEDED spray,suspension (Flonase Allergy Relief) hydroxyzine HCl 25 mg tablet 25 mg PO HS 08/27/18 12/08/22 History metoprolol succinate 100 mg 100 mg PO QAM 08/27/18 12/08/22 History tablet,extended release 24 hr (Toprol XL) montelukast 10 mg tablet 10 mg PO QPM 08/27/18 12/08/22 History olopatadine 0.2 % eye drops 1 drp ophthalmic (eye) DAILY PRN 08/27/18 12/08/22 History (Pataday) ALLERGY RELIEF prednisone 20 mg tablet 40 mg PO DAILY PRN .HIVES 08/27/18 12/08/22 History famotidine 20 mg tablet 20 mg PO HS 03/06/20 12/08/22 History insulin glargine 100 unit/mL (3 18 unit subcut QAM 12/08/22 12/08/22 History mL) subcutaneous pen (Basaglar KwikPen U-100 Insulin) metformin 1,000 mg tablet 1,000 mg PO BID 12/08/22 12/08/22 History rosuvastatin 20 mg tablet 20 mg PO QAM 12/08/22 12/08/22 History bupropion HCl 150 mg 24 hr tablet, 150 mg PO DAILY 12/09/22 12/09/22 History extended release dulaglutide 3 mg/0.5 mL 3 mg subcut Q7D 12/09/22 12/09/22 History subcutaneous pen injector (Trulicity) lorazepam 0.5 mg tablet 0.5 mg PO TID PRN Anxiety 12/09/22 12/09/22 History potassium chloride 20 mEq 40 meq PO DAILY 14 days #28 tabs 12/10/22 Rx tablet,extended release(part/cryst) Hospital Stay Data Consultations 12/08/22 14:29 ED Decision to Admit Stat 12/09/22 07:40 Consult Cardiology Routine Diagnostic Imagining Performed 12/08/22 15:30 CT angio chest PE protocol Stat FINDINGS: Lungs and pleura: Mosaic attenuation is noted throughout the lungs. 5 mm nodule is seen in the right lower lobe (series 4 image 112) Heart and pericardium: Heart size is normal. No pericardial effusion. Vessels: No evidence of pulmonary embolism. Moderate atherosclerotic disease is seen. Mediastinum and melba: Unremarkable. Chest wall and lower neck: Subcentimeter left lower cervical lymph nodes are seen. Abdomen: Hepatic steatosis is noted. Patient is status post cholecystomy. Bones: Degenerative changes in the thoracic spine. IMPRESSION: 1. No pulmonary embolus is seen. 2. Stable right lower lobe pulmonary nodule, benign. 3. Hepatic steatosis. ACT 112: Negative or not required by law. Electronically signed by: Roger Jaeger M.D. 12/08/2022 4:57 PM Pending Results Patient Have Any Pending Studies at Discharge: Yes Discharge Instructions Given to Patient (Per Discharging Provider) PLEASE REFER TO YOUR NEW MEDICATION LIST AND FOLLOW INSTRUCTIONS CAREFULLY. YOUR NEW MEDICATION INCLUDE: Potassium supplement daily Please resume your metformin tomorrow December 11, 2022. This is to prevent kidney injury as you have received IV contrast on a CAT scan last December 08, 2022. Please hydrate well. PLEASE CALL YOUR PRIMARY CARE PHYSICIAN OR RETURN TO THE ER IF WITH WORSENING OF SYMPTOMS, INCLUDING Chest pain, shortness of breath, weakness, etc. FOLLOW UP WITH PRIMARY CARE PHYSICIAN OUTLINED ABOVE. Total Time Total Time Spent Total Time Spent (In Minutes): > 30 minutes
== END 2022-12-10 13:08 | disposition home or self-care (01) | DRG 313 ==
LOC: ED 12:10 → SUATTDRO 14:47 → 2N 14:47